=== PATIENT | female | born 1960 | race Caucasian/White ===

== ENCOUNTER → 2016-12-27 | Outpatient (CLI) | payer OTHER ==
[~2016-12-27] MED LIST: ACETAMINOPHEN650 M1 PO; ADVAIR 250-501 EACH INH; ASPIRIN EC81 MG PO; CENTRUM COMPLE1 EACH PO; COLACE100 MG PO; COREG25 MG PO; FEOSOL325 MG PO; FISH OIL 1,2001 EAC1 PO; HYGROTON25 MG PO; IMDUR30 MG PO; LIPITOR80 MG PO; LISINOPRIL-HCT1 EAC2 PO; MAG-OX-400(241400 MG PO; NITROSTAT0.4 MG SL; NORCO 5-325 MG1 TAB PO; NORVASC10 MG PO; NORVASC5 MG PO; OSCAL + D500 MG PO; PLAVIX75 MG PO; PRINIVIL (ZESTR20 MG PO; PROTONIX40 MG PO; PROVENTIL OR V6.7 GM INH; PROZAC20 MG PO; PROZAC40 MG PO; ULTRACET TABLE1 EACH PO; WOMEN'S DAILY1 EAC3 PO
[2016-12-27 11:29] LABS: ALBUMIN 3.9 gm/dL (3.5-5.0); ALK PHOS 73 IU/L (33-138); ALT 20 IU/L (12-78); ANION GAP 10.6 (10.0-19.0); AST 13 IU/L (10-40); BLOOD UREA NITROGEN 10 mg/dL (6-24); CHLORIDE 106 mMol/L (96-110); CO2 26 mMol/L (22-32); CPK 57 IU/L (21-215); CREATININE 0.5 mg/dL (0.5-1.1); POTASSIUM 3.6 mMol/L (3.7-5.1); SODIUM 139 mMol/L (135-145); TOTAL BILIRUBIN 0.4 mg/dL (0.0-1.5); TOTAL PROTEIN 7.6 g/dL (6.0-8.4)
== END ==
LOC: LNHI 11:06
PROVIDERS: Internal Medicine Interventional Cardiology
DX: E78.00 Pure hypercholesterolemia, unspecified (principal); I10 Essential (primary) hypertension; R07.9 Chest pain, unspecified

== ENCOUNTER 2017-01-09 06:45 | Outpatient (CLI) | payer OTHER ==
[~2017-01-09] VITALS: Ht 157.5 cm; Wt 76.3 kg
--- NOTE | ~2017-01-09 | CATH ---
Cardiac Diagnostic Report Demographics Patient Name CALE Vasquez Gender Female Date of 1960 Age 56 year(s) Patient Number [id number] Date of Study 01/09/2017 Visit Number [id number] Room Number G6399 [place] [id number] Ht 157.48 cm Wt 76.3 kg Referring Star Shala Workman MD Primary Physician Physician Performing [facility] Secondary Physician Physician Lyssa SUAREZ Diagnostic [facility] Assisting Physician Physician Lyssa SUAREZ Interventional Physician [employer] Associate Physician Findings and Conclusions Diagnostic Findings and Conclusion 1) One vessel CAD. Om1 and OM2 stents are patent. 2) Mild non-obstructive CAD in Mid LAD 30% and mRCA 30%, unchanged from prior cath. Diagnostic Recommendations Medical Therapy. Start Ranexa 500mg PO Bid. Continue regular medications. Patient will be discharged later today. Hydration and followup creatinine. Patient has been instructed to not lift anything more than 5 pounds for 1 week. Aggressive risk factor management. Aggressive medical therapy for coronary artery disease. Procedure Description The patient was brought to the diagnostic cardiac catheterization-EP laboratory in the fasting, non-sedated state. Informed consent was obtained in the written and verbal form after the risks and benefits were explained. The patient had no further questions and agreed to proceed. The planned puncture-incision site(s) were shaved and prepped with ChloraPrep and draped in the usual sterile manner. Conscious sedation, supplemental oxygen, and pain control medications were delivered by a registered nurse under physician guidance. Surface ECG rhythm, blood pressure measurement, and pulse oximetry were monitored throughout the procedure. Arterial access. The access site was infiltrated with lidocaine. The vessel was entered with the Seldinger technique. A sheath was advanced into the vessel and used for catheter placement. Selective left coronary angiography. A catheter was advanced into the left coronary vessel ostium under Fluoroscopic guidance. Contrast was injected by hand. Images were obtained in multiple projections. Selective right coronary angiography. A catheter was advanced into the right coronary vessel ostium under fluoroscopic guidance. Contrast was injected by hand. Images were obtained in multiple projections. Left heart catheterization. A catheter was advanced across the aortic valve to the left ventricle under fluoroscopic guidance. Resting hemodynamics were obtained. Arterial artery hemostasis was achieved. The patient was transferred to a regular nursing floor via cart accompanied by a nurse. The patient left the laboratory in stable condition. Procedure Procedure Type Diagnostic procedure:Angiography:, Coronary Angios /[facility] Indications: Unstable angina. The procedure was explained in detail to the patient. Risks, complications and alternative treatments were reviewed. Written consent was obtained. Medications Reviewed with Patient prior to Procedure. Angiographic Findings Dominance: Left Cardiac Arteries and Lesion Findings LMCA: Normal (0% Stenosis). LAD: Abnormal.The 1st Diag is a small caliber vessel. Mild luminal irregularities. Lesion on Mid LAD: 30% stenosis . Lesion on Prox LAD: 20% stenosis . LCx: Abnormal.OM1 and OM2 stents patent.There is a previous stent on 2nd Ob Johanna Proximal subsection showing wide patency. There is a previous stent on 1st Ob Johanna Proximal subsection showing wide patency. Lesion on Mid CX: 10% stenosis . RCA: Lesion on Mid RCA: 30% stenosis . Coronary Tree Procedure Data Procedure Date Date: 01/09/2017Start: 09:09 AMEnd: 09:51 AM Entry Locations - Retrograde Percutaneous access was performed through the Right Radial artery (Primary location). A 6 Fr sheath was inserted. Hemostasis was successfully obtained using an R band. Closure Comments: R-band placed by Craig with 14ml air.. Procedure Medications Order and Administration + + + + + !Time !Medication !Dosage !Route ! + + + + + !01/09/2017 09:04 AM !Versed !1 mg !I.V. ! + + + + + !01/09/2017 09:06 AM !Fentanyl !25 mcg !I.V. ! + + + + + !01/09/2017 09:09 AM !Versed !1 mg !I.V. ! + + + + + !01/09/2017 09:10 AM !Fentanyl !25 mcg !I.V. ! + + + + + !01/09/2017 09:12 AM !Radial Verapamil !2.5 mg !I.A. ! + + + + + !01/09/2017 09:13 AM !Heparin (ACC_3) !5000 units !I.V. bolus ! + + + + + Devices Used - A5 Fr. BS JR 4 Diag. Catheterwas used for:Right coronary angiography. - A5 Fr. BS JL 3.5 Diag. Catheterwas used for:Left coronary angiography. Contrast Material - Isovue 08892 ml Fluoroscopy Time: Diagnostic: 3:48 minutes. Total: 3:48 minutes. Fluoroscopy Dose: Diagnostic: 761 mGy. Total: 761 mGy. Estimated Blood Loss: 10 ml. Medical History Allergies - No known allergies. Risk Factors The patient risk factors include:prior PCI on 08/17/2014;hypertension, chronic lung disease, last creatinine: 0.6 mg/dl, creatinine clearance: 129.11 ml/min, dyslipidemia and former tobacco use. Admission Data Admission Date: 01/09/2017 Admission Time: 06:45 AM Admit Source: Other Insurance Payors: [employer] insurance. Admission Medications + +------+------+ + + + + !Medication !Dosage!Times !Last !Last !Administered !Comments ! ! ! !Per !Delivery !Delivery ! ! ! ! ! !Day !Date !Time ! ! ! + +------+------+ + + + + !Aspirin ! ! ! ! !Yes ! ! !(any) ! ! ! ! ! ! ! + +------+------+ + + + + !Beta Dontae! ! ! ! !Yes ! ! !(any) ! ! ! ! ! ! ! + +------+------+ + + + + !Non-Statin ! ! ! ! !Yes ! ! !(any) ! ! ! ! ! ! ! + +------+------+ + + + + !Nitrates (iv! ! ! ! !Yes ! ! !or buccal) ! ! ! ! ! ! ! + +------+------+ + + + + Clinical Evaluation Leading to Procedure Diagnosed on 01/03/2017 12:00 AM. - The patient's CAD presentation was assessed as: Unstable angina. - The patient's anginal syndrome during the past two weeks was assessed as: Class III according to the [place] Cardiovascular Society Classification System (CCS). Anti-anginal medications were prescribed during the past two weeks. The medications are: Beta Blockers and Ca channel Blockers. - The patient has been in a state of heart failure within the past two weeks. - The patient's heart failure status was assessed as NYHA Class II, with CHF symptoms of REESE. Hemodynamics Condition: Rest O2 Consumption: Estimated: 166.57Heart Rate: 62 bpm Pressures (mmHg) +-----+ + !Site !Pressure ! +-----+ + !AO !144/80 (108) ! +-----+ + !LV !125/6 ,52 ! +-----+ + !LV !131/6 ,91 ! +-----+ + !AO !144/80 (109) ! +-----+ + !LV !135/10 ,15 ! +-----+ + !AO !133/81 (104) ! +-----+ + Valve Gradients and Areas + +---------+---------+---------+ +---------+ + !Valve !Peak !Mean !Area !Index !Flow !Source ! + +---------+---------+---------+ +---------+ + !Aortic !0 !0 ! ! ! ! ! + +---------+---------+---------+ +---------+ + !Aortic !0 !0 ! ! ! ! ! + +---------+---------+---------+ +---------+ + Shunts Oxygen Values O2 Capacity 155.04 O2 Consumption 166.57 Signatures dtt: LYSSA WEN dtd: 01/09/17 0909 Physician Self Edit
[2017-01-09 07:35] LABS: BASOPHIL % 0.7 %; EOSINOPHIL # 0.4 K/uL (0.0-0.5); EOSINOPHIL % 7.2 %; HEMOGLOBIN 11.4 g/dL (10.0-15.0); IMMATURE GRANULOCYTE # 0.1 K/uL (0.0-0.3); LYMPHOCYTE # 1.9 K/uL (0.8-4.0); LYMPHOCYTE % 30.9 %; MCH 29.3 pg (27.0-34.0); MCHC 33.5 gm/dL (32.0-36.5); MCV 87.4 fl (83.0-98.0); MONOCYTE # 0.5 K/uL (0.0-1.0); MPV 8.6 fl (9.4-12.4); NEUTROPHIL # (ANC) 3.2 K/uL (1.8-7.8); NEUTROPHIL % 52.2 %; NRBC % 0 /100WBC (0-0.00); PLATELET COUNT 283 K/uL (150-450); RBC 3.89 M/uL (3.50-5.50); RDW-CV 11.8 % (11.9-14.6); WBC 6.1 K/uL (4.0-11.0)
[2017-01-09 07:39] LABS: INR - (THERAPEUTIC) 1.05 (0.92-1.07); PTT 63 SECONDS (25-32)
[2017-01-09 07:50] LABS: ALBUMIN 3.6 gm/dL (3.5-5.0); ALK PHOS 75 IU/L (33-138); ALT 21 IU/L (12-78); ANION GAP 10.8 (10.0-19.0); AST 10 IU/L (10-40); BLOOD UREA NITROGEN 14 mg/dL (6-24); CALCIUM 8.7 mg/dL (8.5-10.5); CHLORIDE 103 mMol/L (96-110); CO2 27 mMol/L (22-32); CREATININE 0.6 mg/dL (0.5-1.1); POTASSIUM 3.8 mMol/L (3.7-5.1); SODIUM 137 mMol/L (135-145); TOTAL PROTEIN 7.1 g/dL (6.0-8.4)
[2017-01-09 07:51] LABS: TOTAL BILIRUBIN 0.3 mg/dL (0.0-1.5)
== END 2017-01-09 13:12 | disposition disaster alternative care site (69) ==
LOC: GCAT 06:45 → GPCU 06:45 → GCAT 13:12
PROVIDERS: Internal Medicine Cardiovascular Disease
PROC: 4A023N7 Measurement of Cardiac Sampling and Pressure, Left Heart, Percutaneous Approach (ICD-10-PCS; principal; 2017-01-09)
PROC: B216YZZ Fluoroscopy of Right and Left Heart using Other Contrast (ICD-10-PCS; 2017-01-09)
DX: I25.110 Atherosclerotic heart disease of native coronary artery with unstable angina pectoris (principal); E78.5 Hyperlipidemia, unspecified; I10 Essential (primary) hypertension; J98.4 Other disorders of lung; Z87.891 Personal history of nicotine dependence
CPT/HCPCS: J1644; J2001; J2250; J3010; J7030

== ENCOUNTER → 2017-01-30 | Emergency (ER) | payer OTHER | END | disposition disaster alternative care site (69) | LOC: GAMB 08:33 | DX: R53.1 Weakness (principal) ==